=== PATIENT | male | born 1970 | race African-American/Black ===

== ENCOUNTER 2018-06-30 11:53 | Emergency (ER) | payer OTHER ==
[2018-06-30] MEDS ORDERED: NA CHLORIDE 0.9% 1,000 ML ONE (13:58)
[2018-06-30] MEDS ORDERED: CLINDAMYCIN 900MG/D5W 900 MG/50 ML IVPB IV ONE (13:59)
[2018-06-30 14:12] LABS: Absolute Monocytes 0.7 K/uL (0.1-1.3); Absolute Neutrophil 4.4 K/uL (1.8-8.0); Basophils % 1.3 % (0-1.3); Eosinophils % 7.3 % (0-4.4); Hematocrit 39.9 % (39.6-49.0); Lymphocytes % 25.3 % (15.3-44.8); Monocytes % 9.3 % (3.3-12.3); RBC Red Blood Cell Count 4.94 M/uL (4.33-5.43)
[2018-06-30 14:32] LABS: BUN Blood Urea Nitrogen 10 mg/dL (7-18); Bicarbonate 29 mmol/L (21-32); Glucose Level 98 mg/dL (74-106); Potassium 4.2 mmol/L (3.5-5.1); Sodium Level 141 mmol/L (136-145)
--- NOTE | 2018-06-30 15:36 | EDPHYS ---
Physician Documentation [facility] Name: Richard Booker Age: 47 yrs Sex: Male : 1970 Arrival Date: 06/30/2018 Time: 11:58 Bed 16 Private MD: None, None ED Physician Herb Estrada HPI: 06/30 14:00 This 47 yrs old Black Male presents to ER via Ambulatory with complaints of Toothache, cp Facial Swelling. 14:00 The patient presents with pain, swelling. cp 14:00 The problem is located in the upper left first bicuspid (#12). Onset: The cp symptoms/episode began/occurred 2 day(s) ago. Duration: The symptoms are continuous, and are steadily getting worse. Associated signs and symptoms: Pertinent positives: swelling, facial, Pertinent negatives: anorexia, chills, dysphagia, fever, inability to eat, vomiting. Severity of symptoms: in the emergency department the symptoms are unchanged, despite home interventions. Historical: - Allergies: 12:06 PENICILLINS; sv 12:06 hydrocodone; sv - PMHx: 12:06 None; sv - PSHx: 12:06 Hernia repair; sv - Immunization history:: Adult Immunizations unknown. - Social history:: Smoking status: unknown. - Ebola Screening: : No symptoms or risks identified at this time. ROS: 14:05 Constitutional: Negative for body aches, chills, fever, poor PO intake. cp 14:05 Eyes: Negative for injury, pain, redness, and discharge. cp 14:05 ENT: Positive for Teeth pain Negative for drainage from ear(s), ear pain, sore throat, difficulty swallowing, difficulty handling secretions. 14:05 Cardiovascular: Negative for chest pain, edema, palpitations. 14:05 Respiratory: Negative for cough, shortness of breath, wheezing. 14:05 Abdomen/GI: Negative for abdominal pain, vomiting, diarrhea, constipation, black/tarry stool, rectal bleeding. 14:05 Skin: Positive for swelling, of the left side of face, Negative for erythema, rash. 14:05 Neuro: Negative for altered mental status, headache, weakness. 14:05 All other systems are negative. Exam: 14:25 Constitutional: The patient appears in no acute distress, alert, awake, non-toxic, well cp developed, well nourished. 14:25 Head/face: Noted is swelling, that is mild, of the left cheek. cp 14:25 Eyes: Periorbital structures: appear normal, Pupils: equal, round, and reactive to light and accomodation, Extraocular movements: intact throughout, Conjunctiva: normal, no exudate, no injection, Sclera: no appreciated abnormality, Lids and lashes: appear normal, bilaterally. 14:25 ENT: External ear(s): are unremarkable, Ear canal(s): are normal, clear, TM's: bulging, is not appreciated, bilaterally, dullness, bilaterally, erythema, is not appreciated, bilaterally, Nose: is normal, Mouth: Lips: moist, Oral mucosa: pink and intact, moist, Posterior pharynx: is normal, airway is patent, no erythema, no exudate, Dental exam: abscess, is not appreciated, dental caries, that is moderate, diffusely, gum swelling, that is mild, specifically in the upper left first bicuspid (#12), pain, that is moderate, specifically in the upper left first bicuspid (#12), Voice: is normal. 14:25 Neck: ROM/movement: is normal, is supple, without pain, no range of motions limitations, no meningismus, no nuchal rigidity, Lymph nodes: no appreciated lymphadenopathy. 14:25 Chest/axilla: Inspection: normal, Palpation: is normal, no crepitus, no tenderness. 14:25 Cardiovascular: Rate: normal, Rhythm: regular. 14:25 Respiratory: the patient does not display signs of respiratory distress, Respirations: normal, no use of accessory muscles, no retractions, no splinting, no tachypnea, labored breathing, is not present, Breath sounds: are clear throughout, no decreased breath sounds, no stridor, no wheezing. 14:25 Abdomen/GI: Exam negative for discomfort, distension, guarding, Inspection: abdomen appears normal. 14:25 Skin: no rash present. Vital Signs: 12:06 BP 113 / 72; Pulse 98; Resp 18; Temp 98.1; Pulse Ox 97% ; Weight 65.77 kg; Height 6 ft. sv 0 in. (182.88 cm); 14:00 BP 115 / 72; Pulse 95; Resp 16 S; Pulse Ox 97% on R/A; jl7 15:00 BP 114 / 74; Pulse 89; Resp 16 S; Pulse Ox 100% on R/A; jl7 12:06 Body Mass Index 19.67 (65.77 kg, 182.88 cm) sv MDM: 13:17 Patient medically screened. cp 14:00 Differential diagnosis: dental caries, dental abscess, pericoronitis. cp 15:34 Data reviewed: vital signs, nurses notes, lab test result(s), and as a result, I will cp discharge patient. 15:34 Counseling: I had a detailed discussion with the patient and/or guardian regarding: the cp historical points, exam findings, and any diagnostic results supporting the discharge/admit diagnosis, lab results, the need for outpatient follow up, a dentist, to return to the emergency department if symptoms worsen or persist or if there are any questions or concerns that arise at home. Response to treatment: the patient's symptoms have mildly improved after treatment, and as a result, I will discharge patient. 06/30 13:41 Order name: CBC with Diff; Complete Time: 15:26 cp 06/30 15:26 Interpretation: Normal except: HGB 13.2; MCH 26.8; EOSINOPHIL % 7.3; EOSA 0.6. cp 06/30 13:41 Order name: BMP; Complete Time: 15:26 cp 06/30 15:26 Interpretation: Normal except: CL 108. 06/30 13:42 Order name: IV; Complete Time: 13:58 cp Administered Medications: 13:58 Drug: NS 0.9% 1000 ml Route: IV; Rate: 1 bolus; Site: left antecubital; [facility] 15:00 Follow up: Response: No adverse reaction; IV Status: Completed infusion [facility] 13:58 Drug: Clindamycin 900 mg Route: IVPB; Infused Over: 30 mins; Site: left antecubital; [facility] 14:28 Follow up: Response: No adverse reaction; IV Status: Completed infusion jl7 Disposition: 16:00 Chart complete. Disposition: 06/30/18 15:35 Discharged to Home. Impression: Dental caries, Facial swelling. - Condition is Stable. - Discharge Instructions: Dental Caries, Adult, Dental Pain. - Prescriptions for Peridex 0.12 % Mucous Membrane mouthwash - place 15 milliliter by MUCOUS MEMBRANE route 2 times per day after brushing teeth, swish in mouth for 30 seconds then spit out; 1 bottle. Clindamycin HCl 300 mg Oral Capsule - take 1 capsule by ORAL route every 6 hours for 10 days; 40 capsule. Zofran 4 mg Oral Tablet - take 1 tablet by ORAL route every 12 hours As needed; 20 tablet. - Medication Reconciliation Form, Thank You Letter, Antibiotic Education, Prescription Opioid Use form. - Follow up: Private Physician; When: 2 - 3 days; Reason: Recheck today's complaints. - Problem is new. - Symptoms have improved. Addendum: 07/03/2018 07:59 Co-signature as Attending Physician, Herb Estrada MD I agree with the assessment and k dr plan of care. Signatures: Dispatcher [employer] Kenia Lord RN RN Herb Saucedo MD MD [facility] Prashant Martinez PA PA cp Leal, Jahala RN RN jl7 Corrections: (The following items were deleted from the chart) 06/30 15:26 15:26 Normal except: HGB 13.2; MCH 26.8; EOSINOPHIL % 7.3. cp cp 15:57 15:35 06/30/2018 15:35 Discharged to Home. Impression: Dental caries; Facial swelling. jl7 Condition is Stable. Forms are Medication Reconciliation Form, Thank You Letter, Antibiotic Education, Prescription Opioid Use. Follow up: Private Physician; When: 2 - 3 days; Reason: Recheck today's complaints. Problem is new. Symptoms have improved. cp
--- NOTE | 2018-06-30 15:36 | ER ---
Nurse's Notes [facility] Name: Richard Booker Age: 47 yrs Sex: Male : 1970 Arrival Date: 06/30/2018 Time: 11:58 Bed 16 Private MD: None, None Diagnosis: Dental caries;Facial swelling Presentation: 06/30 12:03 Presenting complaint: Patient states: left sided facial swelling x 2 days, saw his sv dentist and sent home with abx, Tylenol #3 but swelling has increased. Transition of care: patient was not received from another setting of care. Onset of symptoms was June 28, 2018. Care prior to arrival: None. 12:03 Method Of Arrival: Ambulatory sv 12:03 Acuity: LEANN 3 sv 12:10 Risk Assessment: Do you want to hurt yourself or someone else? Patient reports no jl7 desire to harm self or others. Initial Sepsis Screen: Does the patient meet any 2 criteria? No. Patient's initial sepsis screen is negative. Does the patient have a suspected source of infection? No. Patient's initial sepsis screen is negative. Triage Assessment: 12:06 General: Appears in no apparent distress. uncomfortable, Behavior is calm, cooperative, sv appropriate for age. Pain: Complains of pain in left side of face. Neuro: Level of Consciousness is awake, alert, obeys commands, Oriented to person, place, time, situation, Gait is steady. Respiratory: Respiratory effort is even, unlabored, Respiratory pattern is regular, symmetrical. Historical: - Allergies: 12:06 PENICILLINS; sv 12:06 hydrocodone; sv - PMHx: 12:06 None; sv - PSHx: 12:06 Hernia repair; sv - Immunization history:: Adult Immunizations unknown. - Social history:: Smoking status: unknown. - Ebola Screening: : No symptoms or risks identified at this time. Screenin:15 Abuse screen: Denies threats or abuse. Denies injuries from another. Nutritional jl7 screening: No deficits noted. Tuberculosis screening: No symptoms or risk factors identified. Fall Risk IV access (20 points). Total Ferreira Fall Scale indicates No Risk (0-24 pts). Assessment: 13:15 General: Appears in no apparent distress. uncomfortable, Behavior is calm, cooperative, jl7 appropriate for age. Pain: Complains of pain in left cheek, left eye and left jaw Pain currently is 7 out of 10 on a pain scale. Pain began 2-3 days ago. Is continuous. Neuro: Level of Consciousness is awake, alert, obeys commands, Oriented to person, place, time, situation. Cardiovascular: Patient's skin is warm and dry. Respiratory: Airway is patent Respiratory effort is even, unlabored, Respiratory pattern is regular, symmetrical. GI: No signs and/or symptoms were reported involving the gastrointestinal system. : No signs and/or symptoms were reported regarding the genitourinary system. EENT: Oral mucosa is dry. swelling noted to left lower jaw. Throat is clear. Derm: Skin is dry, Skin is normal, Skin temperature is warm. Musculoskeletal: No signs and/or symptoms reported regarding the musculoskeletal system. 14:00 Reassessment: Pt laying in bed with eyes closed, respirations even and unlabored, no jl7 signs and distress noted at this time. 15:00 Reassessment: Patient appears in no apparent distress at this time. No changes from jl7 previously documented assessment. Patient and/or family updated on plan of care and expected duration. Pain level reassessed. Patient is alert, oriented x 3, equal unlabored respirations, skin warm/dry/pink. Vital Signs: 12:06 BP 113 / 72; Pulse 98; Resp 18; Temp 98.1; Pulse Ox 97% ; Weight 65.77 kg; Height 6 ft. sv 0 in. (182.88 cm); 14:00 BP 115 / 72; Pulse 95; Resp 16 S; Pulse Ox 97% on R/A; jl7 15:00 BP 114 / 74; Pulse 89; Resp 16 S; Pulse Ox 100% on R/A; jl7 12:06 Body Mass Index 19.67 (65.77 kg, 182.88 cm) sv ED Course: 11:58 Patient arrived in ED. sb2 11:59 None, None is Private Physician. sb2 12:04 Triage completed. sv 12:06 Arm band placed on Patient placed in waiting room, Patient notified of wait time. sv 13:14 Gordon Miller, MARCOS is Primary Nurse. jl7 13:15 Patient has correct armband on for positive identification. Placed in gown. Bed in low jl7 position. Call light in reach. Side rails up X 1. Pulse ox on. NIBP on. Warm blanket given. 13:17 Prashant Martinez PA is PHCP. cp 13:17 Herb Estrada MD is Attending Physician. cp 13:30 Initial lab(s) drawn, by me, sent to lab. Inserted saline lock: 20 gauge in left jl7 antecubital area, using aseptic technique. Blood collected. 15:56 No provider procedures requiring assistance completed. IV discontinued, intact, jl7 bleeding controlled, No redness/swelling at site. Pressure dressing applied. Administered Medications: 13:58 Drug: NS 0.9% 1000 ml Route: IV; Rate: 1 bolus; Site: left antecubital; jl7 15:00 Follow up: Response: No adverse reaction; IV Status: Completed infusion jl7 13:58 Drug: Clindamycin 900 mg Route: IVPB; Infused Over: 30 mins; Site: left antecubital; jl7 14:28 Follow up: Response: No adverse reaction; IV Status: Completed infusion jl7 Outcome: 15:35 Discharge ordered by MD. cp 15:56 Discharged to home ambulatory. jl7 15:56 Condition: stable 15:56 Discharge instructions given to patient, Instructed on discharge instructions, follow up and referral plans. medication usage, Demonstrated understanding of instructions, follow-up care, medications, Prescriptions given X 3. 15:57 Patient left the ED. jl7 Signatures: Kenia Espana, RN Prashant Fallon PA PA cp Leal, Jahala, RN RN jl7 Kierra Curran sb2
== END 2018-06-30 15:57 | disposition home or self-care (01) ==
LOC: ER 11:53
DX: K02.9 Dental caries, unspecified (principal); Z88.0 Allergy status to penicillin; Z88.5 Allergy status to narcotic agent
CPT/HCPCS: 36415; 80048; 85025; 96361; 96365; 99284; J7030